=== PATIENT | female | born 1995 | race American Indian/Alaskan Native ===

== ENCOUNTER 2017-09-26 12:41 | Inpatient (IN) | payer MEDICAID ==
[2017-09-26] MEDS ORDERED: Oxytocin/Lactated Ringers 10 UNIT/1,000 ML BAG IV ONE (13:37)
[2017-09-26] MEDS ORDERED: Sodium Chloride 0.9% 10 ML Syringe FLUSH PRN (14:54)
[2017-09-26] MEDS ORDERED: Docusate Sodium 100 MG Cap PO PRN (14:54)
[2017-09-26] MEDS ORDERED: Acetaminophen 325 MG Tab PO PRN (14:54)
[2017-09-26] MEDS ORDERED: Oxytocin/Lactated Ringers 10 UNIT/1,000 ML BAG IV SCH (15:00)
--- NOTE | 2017-09-26 16:52 | PCM.LDHP ---
<Janak Lainez - Last Filed: 09/26/17 19:42> L&D History of Present Illness - General Date of Service: 09/26/17 Admit Problem/Dx: Patient Status Order with Admit Dx/Problem 09/26/17 14:54 Patient Status [ADT] Routine Admission Diagnosis/Problem Admission Diagnosis/Problem Vaginal delivery 09/26/17 16:45 Germain is a pleasant 22 year who presents to labor and delivery following a and expulsion of her placenta. Tia VINOD date according to [place] records indicate a VINOD "sometime in August" Germain tested positive for GBS on 09/22/17 at [facility] in [place]. She reports that at approximately 3am this morning she began to have contractions which she though were Reji Haas contractions. She reports that after taking a bath these contractions seemed to francois but reports she was woken up again at 6am with the contractions. She reports she was having these contractions every 5 minutes with them lasting approximately 30 seconds or less. She locates the pain in her lower back, rates it as a 10/10 when they occur, and denies any radiation. EMS reports the baby was delivered inside the ambulance and approximately an hour later the placenta passed. This patient reports these contractions have abated with the of baby and the passing of the placenta but she does indicate that she is still feeling cramps in her lower abdomen. 09/26/17 17:08 09/26/17 19:42 Records from [place] revealed LMP VINOD 11/16/17. USG at [facility] was 26 weeks and due date "sometime in August". On 08/25/17 USG revealed 34 weeks (by LMP 28w1d ) [facility] records 06/26/17 26w6d VINOD 09/26/17. Normal anatomy. GC/CT neg 08/25/17 HIV AG-AB, -1 AB, -2 AB, -1 AG all nonreactive. Urine culture mixed viv. Rubella immune Syphilis negative UDS negative O Negative Antibody screen Negative HBsAb <8.5 (5.5) H/H 11.2/32.8 on 08/25/17 Plt [id number] Source of Information: Patient History Limitations: Reports: No Limitations - History of Present Illness Location, : Reports: Lower back Quality: Reports: Ache, Sharp Severity: Severe Pain Score: 10 Improves with: Reports: None Worsens with: Reports: None - Related Data Allergies/Adverse Reactions: Allergies Allergy/AdvReac Type Severity Reaction Status Date / Time No Known Allergies Allergy Verified 09/26/17 14:54 Past Medical History - Past Health History Medical/Surgical History: Denies Medical/Surgical History Social & Family History - Family History Family Medical History: Noncontributory HEENT: Reports: None Cardiac: Reports: None Respiratory: Reports: None GI: Reports: None : Reports: None OBGYN: Reports: None Musculoskeletal: Reports: None Neurological: Reports: None Psychiatric: Reports: None Endocrine/Metabolic: Reports: None Hematologic: Reports: None Immunologic: Reports: None Dermatologic: Reports: None Oncologic: Reports: None, Breast Other Oncologic Family History: Patient reports her maternal grandmother had breast cancer and also reports her brother was diagnosed with bone cancer. - Tobacco Use Smoking Status *Q: Never Smoker Second Hand Smoke Exposure: No - Caffeine Use Caffeine Use: Reports: None - Recreational Drug Use Recreational Drug Use: No H&P Review of Systems - Review of Systems: Review Of Systems: See Below General: Reports: Fatigue HEENT: Reports: No Symptoms Pulmonary: Reports: No Symptoms Cardiovascular: Reports: No Symptoms Gastrointestinal: Reports: No Symptoms Genitourinary: Reports: No Symptoms Musculoskeletal: Reports: No Symptoms Psychiatric: Reports: No Symptoms Neurological: Reports: No Symptoms L&D Exam - Exam Exam: See Below - Vital Signs Vital Signs: Last Vital Signs Temp 97.2 F 09/26/17 15:00 Pulse 84 09/26/17 15:00 Resp 16 09/26/17 15:00 BP 125/70 09/26/17 15:00 Pulse Ox 100 09/26/17 15:00 Weight: 158 lb - Exam General: Alert, Oriented HEENT: Conjunctiva Clear, EOMI, Hearing Intact, Mucosa Moist & [place], Posterior Pharynx Clear, Pupils Equal, Pupils Reactive Neck: Supple, Trachea Midline Lungs: Clear to Auscultation, Normal Respiratory Effort Cardiovascular: Regular Rate, Regular Rhythm GI/Abdominal Exam: Normal Bowel Sounds, Soft, Non-Tender, No Organomegaly, No Distention, No Mass, Other (Patient examined upon arrival after delivery in ambulance. small <1 cm 1st degree laceration midline not bleeding not sutured) Back Exam: Normal Inspection, Full Range of Motion Extremities: Normal Inspection, Normal Range of Motion, Non-Tender, Pedal Edema Skin: Warm, Dry, Intact Neurological: Reflexes Equal Bilateral DTR: 2+: Bicep (L), Bicep (R), Tricep (L), Tricep (R), Patella (L), Patella (R) Psychiatric: Alert, Normal Affect, Normal Mood - Patient Data Lab Results Last 24 hrs: Laboratory Results - last 24 hr 09/26/17 09/26/17 09/26/17 Range/Units 14:55 15:35 15:35 WBC Cancelled 18.68 H Corrected WBC Cancelled RBC Cancelled 3.54 L Hgb Cancelled 9.8 L Hct Cancelled 29.0 L MCV Cancelled 81.9 MCH Cancelled 27.7 MCHC Cancelled 33.8 RDW Std Deviation Cancelled 43.3 Plt Count Cancelled 318 MPV Cancelled 9.9 Neut % (Auto) Cancelled 89.0 H Lymph % (Auto) Cancelled 5.3 L [place] % (Auto) Cancelled 5.3 Eos % (Auto) Cancelled 0 L Baso % (Auto) Cancelled 0.1 Neut # (Auto) Cancelled 16.64 H Lymph # (Auto) Cancelled 0.99 L [place] # (Auto) Cancelled 0.99 H Eos # (Auto) Cancelled 0.00 L Baso # (Auto) Cancelled 0.01 Manual Slide Review Cancelled Abnormal smear Blood Type O NEGATIVE Result Diagrams: 09/26/17 15:35 - Problem List (1) 40 weeks gestation of SNOMED Code(s): 79850207 ICD Code: Z3A.40 - 40 WEEKS GESTATION OF Status: Acute Current Visit: Yes Problem List Initiated/Reviewed/Updated: No Orders Last 24hrs: Active Orders 24 hr Category Date Time Status Patient Status [ADT] Routine ADT 09/26/17 14:54 Active Activity as Tolerated [RC] PER UNIT ROUTINE Care 09/26/17 14:54 Active Peripheral IV Care [RC] Q2HR Care 09/26/17 14:56 Active Vital Signs [RC] 04,12,20 Care 09/26/17 14:54 Active Regular Diet [DIET] Diet 09/26/17 Dinner Active CBC WITH AUTO DIFF [HEME] Routine Lab 09/27/17 06:00 Ordered PATIENT RETYPE [BBK] Routine Lab 09/26/17 15:35 Results RHOGAM, [RHIG WORKUP, ] [BBK] Lab 09/26/17 15:35 Results Routine Acetaminophen [Tylenol] Med 09/26/17 14:54 Active 650 mg PO Q4H PRN Docusate Sodium [Colace] Med 09/26/17 14:54 Active 100 mg PO BID PRN Ibuprofen [Motrin] Med 09/26/17 14:54 Active 600 mg PO Q4H PRN Oxytocin/Lactated Ringers [Pitocin in LR 10 Units/1,000 Med 09/26/17 15:00 Active ML] 10 unit in 1,000 ml IV TITRATE Sodium Chloride 0.9% [Saline Flush] Med 09/26/17 14:54 Active 10 ml FLUSH ASDIRECTED PRN Assess Lochia [WOMSER] Per Unit Routine Ot 09/26/17 14:54 Ordered Assess Uterine Involution [WOMSER] Per Unit Routine Oth 09/26/17 14:54 Ordered Breast Pump [WOMSER] Per Unit Routine Ot 09/26/17 14:54 Ordered Heat Therapy [OM.PC] PRN Oth 09/26/17 15:00 Ordered Heat Therapy [OM.PC] PRN Ot 09/27/17 15:00 Ordered Perineal Care [OM.PC] Per Unit Routine Ot 09/26/17 14:54 Ordered Peripheral IV Insertion Adult [OM.PC] Routine Ot 09/26/17 14:54 Ordered Sitz Bath [OM.PC] Per Unit Routine Ot 09/26/17 14:54 Ordered Resuscitation Status Routine Resus Stat 09/26/17 14:54 Ordered Medication Orders Acetaminophen (Tylenol) 650 mg PO Q4H PRN PRN Reason: mild pain or fever Docusate Sodium (Colace) 100 mg PO BID PRN PRN Reason: Constipation Oxytocin/Lactated Ringer's (Pitocin In Lr 10 Units/1,000 Ml) 10 unit in 1,000 mls @ 100 mls/hr IV TITRATE SULAIMAN Ibuprofen (Motrin) 600 mg PO Q4H PRN PRN Reason: Mild pain or fever Sodium Chloride (Saline Flush) 10 ml FLUSH ASDIRECTED PRN PRN Reason: Keep Vein Open Assessment/Plan Comment:: Delivery occurred in ambulance and placenta delivered in ambulance as well. <Geoffrey Van - Last Filed: 09/26/17 19:59> L&D History of Present Illness - General Admit Problem/Dx: Patient Status Order with Admit Dx/Problem 09/26/17 14:54 Patient Status [ADT] Routine Admission Diagnosis/Problem Admission Diagnosis/Problem Vaginal delivery Source of Information: Patient History Limitations: Reports: No Limitations - History of Present Illness Improves with: Reports: None Worsens with: Reports: None Associated Symptoms: Reports: N L&D Exam - Vital Signs Vital Signs: Last Vital Signs Temp 97.2 F 09/26/17 15:00 Pulse 84 09/26/17 15:00 Resp 16 09/26/17 15:00 BP 125/70 09/26/17 15:00 Pulse Ox 100 09/26/17 15:00 - Patient Data Lab Results Last 24 hrs: Laboratory Results - last 24 hr 09/26/17 09/26/17 09/26/17 Range/Units 14:55 15:35 15:35 WBC Cancelled 18.68 H Corrected WBC Cancelled RBC Cancelled 3.54 L Hgb Cancelled 9.8 L Hct Cancelled 29.0 L MCV Cancelled 81.9 MCH Cancelled 27.7 MCHC Cancelled 33.8 RDW Std Deviation Cancelled 43.3 Plt Count Cancelled 318 MPV Cancelled 9.9 Neut % (Auto) Cancelled 89.0 H Lymph % (Auto) Cancelled 5.3 L [place] % (Auto) Cancelled 5.3 Eos % (Auto) Cancelled 0 L Baso % (Auto) Cancelled 0.1 Neut # (Auto) Cancelled 16.64 H Lymph # (Auto) Cancelled 0.99 L [place] # (Auto) Cancelled 0.99 H Eos # (Auto) Cancelled 0.00 L Baso # (Auto) Cancelled 0.01 Manual Slide Review Cancelled Abnormal smear Blood Type O NEGATIVE Gel Antibody Screen Positive Screen 0 ros/5 flds - neg RhIG Candidate? Yes Rhogam Indicated Yes, baby rh pos H Result Diagrams: 09/26/17 15:35 - Problem List (1) 40 weeks gestation of SNOMED Code(s): 80978456 ICD Code: Z3A.40 - 40 WEEKS GESTATION OF Status: Acute Current Visit: Yes Problem List Initiated/Reviewed/Updated: No Orders Last 24hrs: Active Orders 24 hr Category Date Time Status Patient Status [ADT] Routine ADT 09/26/17 14:54 Active Activity as Tolerated [RC] PER UNIT ROUTINE Care 09/26/17 14:54 Active Peripheral IV Care [RC] Q2HR Care 09/26/17 14:56 Active Vital Signs [RC] 04,12,20 Care 09/26/17 14:54 Active Regular Diet [DIET] Diet 09/26/17 Dinner Active ANTIBODY IDENTIFICATION [BBK] Routine Lab 09/26/17 15:35 Results CBC WITH AUTO DIFF [HEME] Routine Lab 09/27/17 06:00 Ordered SCREEN [BBK] Routine Lab 09/26/17 15:35 Results PATIENT RETYPE [BBK] Routine Lab 09/26/17 15:35 Results RH IMMUNE GLOBULIN [BBK] Routine Lab 09/26/17 15:35 Results RHOGAM, [RHIG WORKUP, ] [BBK] Lab 09/26/17 15:35 Results Routine Acetaminophen [Tylenol] Med 09/26/17 14:54 Active 650 mg PO Q4H PRN Docusate Sodium [Colace] Med 09/26/17 14:54 Active 100 mg PO BID PRN Ibuprofen [Motrin] Med 09/26/17 14:54 Active 600 mg PO Q4H PRN Oxytocin/Lactated Ringers [Pitocin in LR 10 Units/1,000 Med 09/26/17 15:00 Active ML] 10 unit in 1,000 ml IV TITRATE Sodium Chloride 0.9% [Saline Flush] Med 09/26/17 14:54 Active 10 ml FLUSH ASDIRECTED PRN Assess Lochia [WOMSER] Per Unit Routine Oth 09/26/17 14:54 Ordered Assess Uterine Involution [WOMSER] Per Unit Routine Oth 09/26/17 14:54 Ordered Breast Pump [WOMSER] Per Unit Routine Oth 09/26/17 14:54 Ordered Heat Therapy [OM.PC] PRN Oth 09/26/17 15:00 Ordered Heat Therapy [OM.PC] PRN Oth 09/27/17 15:00 Ordered Perineal Care [OM.PC] Per Unit Routine Oth 09/26/17 14:54 Ordered Peripheral IV Insertion Adult [OM.PC] Routine Oth 09/26/17 14:54 Ordered Sitz Bath [OM.PC] Per Unit Routine Oth 09/26/17 14:54 Ordered Resuscitation Status Routine Resus Stat 09/26/17 14:54 Ordered Medication Orders Acetaminophen (Tylenol) 650 mg PO Q4H PRN PRN Reason: mild pain or fever Docusate Sodium (Colace) 100 mg PO BID PRN PRN Reason: Constipation Oxytocin/Lactated Ringer's (Pitocin In Lr 10 Units/1,000 Ml) 10 unit in 1,000 mls @ 100 mls/hr IV TITRATE SULAIMAN Last Admin: 09/26/17 14:00 Dose: 100 mls/hr Ibuprofen (Motrin) 600 mg PO Q4H PRN PRN Reason: Mild pain or fever Sodium Chloride (Saline Flush) 10 ml FLUSH ASDIRECTED PRN PRN Reason: Keep Vein Open Assessment/Plan Comment:: Patient seen, examined and discussed with student.
[2017-09-27] MEDS: Ibuprofen 600 MG Tab PO PRN ×3 (01:23→20:28)
--- NOTE | 2017-09-27 08:33 | PCM.SN ---
- Free Text/Narrative Note: note: Afebrile, chest clear no abnormal breath sounds. Heart sounds normal. Breast exam negative. Abdomen nontender uterus at U []. No heavy vaginal bleeding no leg cramping reflexes normal.
[2017-09-28] MEDS: Ibuprofen 600 MG Tab PO PRN (04:46)
--- NOTE | 2017-09-28 09:13 | PCM.DCSUM1 ---
Discharge Summary - Hospital Course Free Text/Narrative:: [facility] LIVE Admission H&P Patient Name: DAVID SINGER Date of : 89 Patient Status: Inpatient Attending Provider: Geoffrey Van Date: 09/26/17 16:44 Initialization Date: 09/26/17 16:44 <Janak Lainez - Last Filed: 09/26/17 19:42> L&D History of Present Illness - General Date of Service: 09/26/17 Admit Problem/Dx: Patient Status Order with Admit Dx/Problem 09/26/17 14:54 Patient Status [ADT] Routine Admission Diagnosis/Problem Admission Diagnosis/Problem Vaginal delivery 09/26/17 16:45 David is a pleasant 22 year who presents to labor and delivery following a and expulsion of her placenta. Tia VINOD date according to [place] records indicate a VINOD "sometime in August" David tested positive for GBS on 09/22/[address] [facility] in [place]. She reports that at approximately 3am this morning she began to have contractions which she though were [place]ji Haas contractions. She reports that after taking a bath these contractions seemed to francois but reports she was woken up again at 6am with the contractions. She reports she was having these contractions every 5 minutes with them lasting approximately 30 seconds or less. She locates the pain in her lower back, rates it as a 10/10 when they occur, and denies any radiation. EMS reports the baby was delivered inside the ambulance and approximately an hour later the placenta passed. This patient reports these contractions have abated with the of baby and the passing of the placenta but she does indicate that she is still feeling cramps in her lower abdomen. 09/26/17 17:08 09/26/17 19:42 Records from [place] revealed LMP VINOD 11/16/17. USG at [facility] was 26 weeks and due date "sometime in August". On 08/25/17 USG revealed 34 weeks (by LMP 28w1d ) [facility] records 06/26/17 26w6d VINOD 09/26/17. Normal anatomy. GC/CT neg 08/25/17 HIV AG-AB, -1 AB, -2 AB, -1 AG all nonreactive. Urine culture mixed viv. Rubella immune Syphilis negative UDS negative O Negative Antibody screen Negative HBsAb <8.5 (5.5) H/H 11.2/32.8 on 08/25/17 Plt [id number] Source of Information: Patient History Limitations: Reports: No Limitations - History of Present Illness Location, : Reports: Lower back Quality: Reports: Ache, Sharp Severity: Severe Pain Score: 10 Improves with: Reports: None Worsens with: Reports: None - Related Data Allergies/Adverse Reactions: Allergies Allergy/AdvReac Type Severity Reaction Status Date / Time No Known Allergies Allergy Verified 09/26/17 14:54 Past Medical History - Past Health History Medical/Surgical History: Denies Medical/Surgical History Social & Family History - Family History Family Medical History: Noncontributory HEENT: Reports: None Cardiac: Reports: None Respiratory: Reports: None GI: Reports: None : Reports: None OBGYN: Reports: None Musculoskeletal: Reports: None Neurological: Reports: None Psychiatric: Reports: None Endocrine/Metabolic: Reports: None Hematologic: Reports: None Immunologic: Reports: None Dermatologic: Reports: None Oncologic: Reports: None, Breast Other Oncologic Family History: Patient reports her maternal grandmother had breast cancer and also reports her brother was diagnosed with bone cancer. - Tobacco Use Smoking Status *Q: Never Smoker Second Hand Smoke Exposure: No - Caffeine Use Caffeine Use: Reports: None - Recreational Drug Use Recreational Drug Use: No H&P Review of Systems - Review of Systems: Review Of Systems: See Below General: Reports: Fatigue HEENT: Reports: No Symptoms Pulmonary: Reports: No Symptoms Cardiovascular: Reports: No Symptoms Gastrointestinal: Reports: No Symptoms Genitourinary: Reports: No Symptoms Musculoskeletal: Reports: No Symptoms Psychiatric: Reports: No Symptoms Neurological: Reports: No Symptoms L&D Exam - Exam Exam: See Below - Vital Signs Vital Signs: Last Vital Signs Temp 97.2 F 09/26/17 15:00 Pulse 84 09/26/17 15:00 Resp 16 09/26/17 15:00 BP 125/70 09/26/17 15:00 Pulse Ox 100 09/26/17 15:00 Weight: 158 lb - Exam General: Alert, Oriented HEENT: Conjunctiva Clear, EOMI, Hearing Intact, Mucosa Moist & [place], Posterior Pharynx Clear, Pupils Equal, Pupils Reactive Neck: Supple, Trachea Midline Lungs: Clear to Auscultation, Normal Respiratory Effort Cardiovascular: Regular Rate, Regular Rhythm GI/Abdominal Exam: Normal Bowel Sounds, Soft, Non-Tender, No Organomegaly, No Distention, No Mass, Other (Patient examined upon arrival after delivery in ambulance. small <1 cm 1st degree laceration midline not bleeding not sutured) Back Exam: Normal Inspection, Full Range of Motion Extremities: Normal Inspection, Normal Range of Motion, Non-Tender, Pedal Edema Skin: Warm, Dry, Intact Neurological: Reflexes Equal Bilateral DTR: 2+: Bicep (L), Bicep (R), Tricep (L), Tricep (R), Patella (L), Patella (R) Psychiatric: Alert, Normal Affect, Normal Mood - Patient Data Lab Results Last 24 hrs: Laboratory Results - last 24 hr 09/26/17 09/26/17 09/26/17 Range/Units 14:55 15:35 15:35 WBC Cancelled 18.68 H Corrected WBC Cancelled RBC Cancelled 3.54 L Hgb Cancelled 9.8 L Hct Cancelled 29.0 L MCV Cancelled 81.9 MCH Cancelled 27.7 MCHC Cancelled 33.8 RDW Std Deviation Cancelled 43.3 Plt Count Cancelled 318 MPV Cancelled 9.9 Neut % (Auto) Cancelled 89.0 H Lymph % (Auto) Cancelled 5.3 L [place] % (Auto) Cancelled 5.3 Eos % (Auto) Cancelled 0 L Baso % (Auto) Cancelled 0.1 Neut # (Auto) Cancelled 16.64 H Lymph # (Auto) Cancelled 0.99 L [place] # (Auto) Cancelled 0.99 H Eos # (Auto) Cancelled 0.00 L Baso # (Auto) Cancelled 0.01 Manual Slide Review Cancelled Abnormal smear Blood Type O NEGATIVE Result Diagrams: 09/26/17 15:35 - Problem List (1) 40 weeks gestation of SNOMED Code(s): 47679606 ICD Code: Z3A.40 - 40 WEEKS GESTATION OF Status: Acute Current Visit: Yes Problem List Initiated/Reviewed/Updated: No Orders Last 24hrs: Active Orders 24 hr Category Date Time Status Patient Status [ADT] Routine ADT 09/26/17 14:54 Active Activity as Tolerated [RC] PER UNIT ROUTINE Care 09/26/17 14:54 Active Peripheral IV Care [RC] Q2HR Care 09/26/17 14:56 Active Vital Signs [RC] 04,12,20 Care 09/26/17 14:54 Active Regular Diet [DIET] Diet 09/26/17 Dinner Active CBC WITH AUTO DIFF [HEME] Routine Lab 09/27/17 06:00 Ordered PATIENT RETYPE [BBK] Routine Lab 09/26/17 15:35 Results RHOGAM, [RHIG WORKUP, ] [BBK] Lab 09/26/17 15:35 Results Routine Acetaminophen [Tylenol] Med 09/26/17 14:54 Active 650 mg PO Q4H PRN Docusate Sodium [Colace] Med 09/26/17 14:54 Active 100 mg PO BID PRN Ibuprofen [Motrin] Med 09/26/17 14:54 Active 600 mg PO Q4H PRN Oxytocin/Lactated Ringers [Pitocin in LR 10 Units/1,000 Med 09/26/17 15:00 Active ML] 10 unit in 1,000 ml IV TITRATE Sodium Chloride 0.9% [Saline Flush] Med 09/26/17 14:54 Active 10 ml FLUSH ASDIRECTED PRN Assess Lochia [WOMSER] Per Unit Routine Oth 09/26/17 14:54 Ordered Assess Uterine Involution [WOMSER] Per Unit Routine Oth 09/26/17 14:54 Ordered Breast Pump [WOMSER] Per Unit Routine Oth 09/26/17 14:54 Ordered Heat Therapy [OM.PC] PRN Oth 09/26/17 15:00 Ordered Heat Therapy [OM.PC] PRN Oth 09/27/17 15:00 Ordered Perineal Care [OM.PC] Per Unit Routine Ot 09/26/17 14:54 Ordered Peripheral IV Insertion Adult [OM.PC] Routine Oth 09/26/17 14:54 Ordered Sitz Bath [OM.PC] Per Unit Routine Oth 09/26/17 14:54 Ordered Resuscitation Status Routine Resus Stat 09/26/17 14:54 Ordered Medication Orders Acetaminophen (Tylenol) 650 mg PO Q4H PRN PRN Reason: mild pain or fever Docusate Sodium (Colace) 100 mg PO BID PRN PRN Reason: Constipation Oxytocin/Lactated Ringer's (Pitocin In Lr 10 Units/1,000 Ml) 10 unit in 1,000 mls @ 100 mls/hr IV TITRATE SULAIMAN Ibuprofen (Motrin) 600 mg PO Q4H PRN PRN Reason: Mild pain or fever Sodium Chloride (Saline Flush) 10 ml FLUSH ASDIRECTED PRN PRN Reason: Keep Vein Open Assessment/Plan Comment:: Delivery occurred in ambulance and placenta delivered in ambulance as well. <Geoffrey Van - Last Filed: 09/26/17 19:59> L&D History of Present Illness - General Admit Problem/Dx: Patient Status Order with Admit Dx/Problem 09/26/17 14:54 Patient Status [ADT] Routine Admission Diagnosis/Problem Admission Diagnosis/Problem Vaginal delivery Source of Information: Patient History Limitations: Reports: No Limitations - History of Present Illness Improves with: Reports: None Worsens with: Reports: None Associated Symptoms: Reports: N L&D Exam - Vital Signs Vital Signs: Last Vital Signs Temp 97.2 F 09/26/17 15:00 Pulse 84 09/26/17 15:00 Resp 16 09/26/17 15:00 BP 125/70 09/26/17 15:00 Pulse Ox 100 09/26/17 15:00 - Patient Data Lab Results Last 24 hrs: Laboratory Results - last 24 hr 09/26/17 09/26/17 09/26/17 Range/Units 14:55 15:35 15:35 WBC Cancelled 18.68 H Corrected WBC Cancelled RBC Cancelled 3.54 L Hgb Cancelled 9.8 L Hct Cancelled 29.0 L MCV Cancelled 81.9 MCH Cancelled 27.7 MCHC Cancelled 33.8 RDW Std Deviation Cancelled 43.3 Plt Count Cancelled 318 MPV Cancelled 9.9 Neut % (Auto) Cancelled 89.0 H Lymph % (Auto) Cancelled 5.3 L [place] % (Auto) Cancelled 5.3 Eos % (Auto) Cancelled 0 L Baso % (Auto) Cancelled 0.1 Neut # (Auto) Cancelled 16.64 H Lymph # (Auto) Cancelled 0.99 L [place] # (Auto) Cancelled 0.99 H Eos # (Auto) Cancelled 0.00 L Baso # (Auto) Cancelled 0.01 Manual Slide Review Cancelled Abnormal smear Blood Type O NEGATIVE Gel Antibody Screen Positive Screen 0 ros/5 flds - neg RhIG Candidate? Yes Rhogam Indicated Yes, baby rh pos H Result Diagrams: 09/26/17 15:35 - Problem List (1) 40 weeks gestation of SNOMED Code(s): 53020686 ICD Code: Z3A.40 - 40 WEEKS GESTATION OF Status: Acute Current Visit: Yes Problem List Initiated/Reviewed/Updated: No Orders Last 24hrs: Active Orders 24 hr Category Date Time Status Patient Status [ADT] Routine ADT 09/26/17 14:54 Active Activity as Tolerated [RC] PER UNIT ROUTINE Care 09/26/17 14:54 Active Peripheral IV Care [RC] Q2HR Care 09/26/17 14:56 Active Vital Signs [RC] 04,12,20 Care 09/26/17 14:54 Active Regular Diet [DIET] Diet 09/26/17 Dinner Active ANTIBODY IDENTIFICATION [BBK] Routine Lab 09/26/17 15:35 Results CBC WITH AUTO DIFF [HEME] Routine Lab 09/27/17 06:00 Ordered SCREEN [BBK] Routine Lab 09/26/17 15:35 Results PATIENT RETYPE [BBK] Routine Lab 09/26/17 15:35 Results RH IMMUNE GLOBULIN [BBK] Routine Lab 09/26/17 15:35 Results RHOGAM, [RHIG WORKUP, ] [BBK] Lab 09/26/17 15:35 Results Routine Acetaminophen [Tylenol] Med 09/26/17 14:54 Active 650 mg PO Q4H PRN Docusate Sodium [Colace] Med 09/26/17 14:54 Active 100 mg PO BID PRN Ibuprofen [Motrin] Med 09/26/17 14:54 Active 600 mg PO Q4H PRN Oxytocin/Lactated Ringers [Pitocin in LR 10 Units/1,000 Med 09/26/17 15:00 Active ML] 10 unit in 1,000 ml IV TITRATE Sodium Chloride 0.9% [Saline Flush] Med 09/26/17 14:54 Active 10 ml FLUSH ASDIRECTED PRN Assess Lochia [WOMSER] Per Unit Routine Oth 09/26/17 14:54 Ordered Assess Uterine Involution [WOMSER] Per Unit Routine Oth 09/26/17 14:54 Ordered Breast Pump [WOMSER] Per Unit Routine Oth 09/26/17 14:54 Ordered Heat Therapy [OM.PC] PRN Oth 09/26/17 15:00 Ordered Heat Therapy [OM.PC] PRN Oth 09/27/17 15:00 Ordered Perineal Care [OM.PC] Per Unit Routine Oth 09/26/17 14:54 Ordered Peripheral IV Insertion Adult [OM.PC] Routine Oth 09/26/17 14:54 Ordered Sitz Bath [OM.PC] Per Unit Routine Oth 09/26/17 14:54 Ordered Resuscitation Status Routine Resus Stat 09/26/17 14:54 Ordered Medication Orders Acetaminophen (Tylenol) 650 mg PO Q4H PRN PRN Reason: mild pain or fever Docusate Sodium (Colace) 100 mg PO BID PRN PRN Reason: Constipation Oxytocin/Lactated Ringer's (Pitocin In Lr 10 Units/1,000 Ml) 10 unit in 1,000 mls @ 100 mls/hr IV TITRATE SULAIMAN Last Admin: 09/26/17 14:00 Dose: 100 mls/hr Ibuprofen (Motrin) 600 mg PO Q4H PRN PRN Reason: Mild pain or fever Sodium Chloride (Saline Flush) 10 ml FLUSH ASDIRECTED PRN PRN Reason: Keep Vein Open Assessment/Plan Comment:: Patient seen, examined and discussed with student. HPI Initial Comments: [facility] LIVE Admission H&P Patient Name: DAVID SINGER Date of : 89 Patient Status: Inpatient Attending Provider: Geoffrey Van Date: 09/26/17 16:44 Initialization Date: 09/26/17 16:44 <Janak Lainez - Last Filed: 09/26/17 19:42> L&D History of Present Illness - General Date of Service: 09/26/17 Admit Problem/Dx: Patient Status Order with Admit Dx/Problem 09/26/17 14:54 Patient Status [ADT] Routine Admission Diagnosis/Problem Admission Diagnosis/Problem Vaginal delivery 09/26/17 16:45 David is a pleasant 22 year who presents to labor and delivery following a and expulsion of her placenta. Tia VINOD date according to [place] indicate a VINOD "sometime in August" David tested positive for GBS on 09/22/[address] [facility] in [place]. She reports that at approximately 3am this morning she began to have contractions which she though were [place] Haas contractions. She reports that after taking a bath these contractions seemed to francois but reports she was woken up again at 6am with the contractions. She reports she was having these contractions every 5 minutes with them lasting approximately 30 seconds or less. She locates the pain in her lower back, rates it as a 10/10 when they occur, and denies any radiation. EMS reports the baby was delivered inside the ambulance and approximately an hour later the placenta passed. This patient reports these contractions have abated with the of baby and the passing of the placenta but she does indicate that she is still feeling cramps in her lower abdomen. 09/26/17 17:08 09/26/17 19:42 Records from [place] revealed LMP VINOD 11/16/17. USG at [facility] was 26 weeks and due date "sometime in August". On 08/25/17 USG revealed 34 weeks (by LMP 28w1d ) [facility] records 06/26/17 26w6d VINOD 09/26/17. Normal anatomy. GC/CT neg 08/25/17 HIV AG-AB, -1 AB, -2 AB, -1 AG all nonreactive. Urine culture mixed viv. Rubella immune Syphilis negative UDS negative O Negative Antibody screen Negative HBsAb <8.5 (5.5) H/H 11.2/32.8 on 08/25/17 Plt [id number] Source of Information: Patient History Limitations: Reports: No Limitations - History of Present Illness Location, : Reports: Lower back Quality: Reports: Ache, Sharp Severity: Severe Pain Score: 10 Improves with: Reports: None Worsens with: Reports: None - Related Data Allergies/Adverse Reactions: Allergies Allergy/AdvReac Type Severity Reaction Status Date / Time No Known Allergies Allergy Verified 09/26/17 14:54 Past Medical History - Past Health History Medical/Surgical History: Denies Medical/Surgical History Social & Family History - Family History Family Medical History: Noncontributory HEENT: Reports: None Cardiac: Reports: None Respiratory: Reports: None GI: Reports: None : Reports: None OBGYN: Reports: None Musculoskeletal: Reports: None Neurological: Reports: None Psychiatric: Reports: None Endocrine/Metabolic: Reports: None Hematologic: Reports: None Immunologic: Reports: None Dermatologic: Reports: None Oncologic: Reports: None, Breast Other Oncologic Family History: Patient reports her maternal grandmother had breast cancer and also reports her brother was diagnosed with bone cancer. - Tobacco Use Smoking Status *Q: Never Smoker Second Hand Smoke Exposure: No - Caffeine Use Caffeine Use: Reports: None - Recreational Drug Use Recreational Drug Use: No H&P Review of Systems - Review of Systems: Review Of Systems: See Below General: Reports: Fatigue HEENT: Reports: No Symptoms Pulmonary: Reports: No Symptoms Cardiovascular: Reports: No Symptoms Gastrointestinal: Reports: No Symptoms Genitourinary: Reports: No Symptoms Musculoskeletal: Reports: No Symptoms Psychiatric: Reports: No Symptoms Neurological: Reports: No Symptoms L&D Exam - Exam Exam: See Below - Vital Signs Vital Signs: Last Vital Signs Temp 97.2 F 09/26/17 15:00 Pulse 84 09/26/17 15:00 Resp 16 09/26/17 15:00 BP 125/70 09/26/17 15:00 Pulse Ox 100 09/26/17 15:00 Weight: 158 lb - Exam General: Alert, Oriented HEENT: Conjunctiva Clear, EOMI, Hearing Intact, Mucosa Moist & [place], Posterior Pharynx Clear, Pupils Equal, Pupils Reactive Neck: Supple, Trachea Midline Lungs: Clear to Auscultation, Normal Respiratory Effort Cardiovascular: Regular Rate, Regular Rhythm GI/Abdominal Exam: Normal Bowel Sounds, Soft, Non-Tender, No Organomegaly, No Distention, No Mass, Other (Patient examined upon arrival after delivery in ambulance. small <1 cm 1st degree laceration midline not bleeding not sutured) Back Exam: Normal Inspection, Full Range of Motion Extremities: Normal Inspection, Normal Range of Motion, Non-Tender, Pedal Edema Skin: Warm, Dry, Intact Neurological: Reflexes Equal Bilateral DTR: 2+: Bicep (L), Bicep (R), Tricep (L), Tricep (R), Patella (L), Patella (R) Psychiatric: Alert, Normal Affect, Normal Mood - Patient Data Lab Results Last 24 hrs: Laboratory Results - last 24 hr 09/26/17 09/26/17 09/26/17 Range/Units 14:55 15:35 15:35 WBC Cancelled 18.68 H Corrected WBC Cancelled RBC Cancelled 3.54 L Hgb Cancelled 9.8 L Hct Cancelled 29.0 L MCV Cancelled 81.9 MCH Cancelled 27.7 MCHC Cancelled 33.8 RDW Std Deviation Cancelled 43.3 Plt Count Cancelled 318 MPV Cancelled 9.9 Neut % (Auto) Cancelled 89.0 H Lymph % (Auto) Cancelled 5.3 L [place] % (Auto) Cancelled 5.3 Eos % (Auto) Cancelled 0 L Baso % (Auto) Cancelled 0.1 Neut # (Auto) Cancelled 16.64 H Lymph # (Auto) Cancelled 0.99 L [place] # (Auto) Cancelled 0.99 H Eos # (Auto) Cancelled 0.00 L Baso # (Auto) Cancelled 0.01 Manual Slide Review Cancelled Abnormal smear Blood Type O NEGATIVE Result Diagrams: 09/26/17 15:35 - Problem List (1) 40 weeks gestation of SNOMED Code(s): 69502645 ICD Code: Z3A.40 - 40 WEEKS GESTATION OF Status: Acute Current Visit: Yes Problem List Initiated/Reviewed/Updated: No Orders Last 24hrs: Active Orders 24 hr Category Date Time Status Patient Status [ADT] Routine ADT 09/26/17 14:54 Active Activity as Tolerated [RC] PER UNIT ROUTINE Care 09/26/17 14:54 Active Peripheral IV Care [RC] Q2HR Care 09/26/17 14:56 Active Vital Signs [RC] 04,12,20 Care 09/26/17 14:54 Active Regular Diet [DIET] Diet 09/26/17 Dinner Active CBC WITH AUTO DIFF [HEME] Routine Lab 09/27/17 06:00 Ordered PATIENT RETYPE [BBK] Routine Lab 09/26/17 15:35 Results RHOGAM, [RHIG WORKUP, ] [BBK] Lab 09/26/17 15:35 Results Routine Acetaminophen [Tylenol] Med 09/26/17 14:54 Active 650 mg PO Q4H PRN Docusate Sodium [Colace] Med 09/26/17 14:54 Active 100 mg PO BID PRN Ibuprofen [Motrin] Med 09/26/17 14:54 Active 600 mg PO Q4H PRN Oxytocin/Lactated Ringers [Pitocin in LR 10 Units/1,000 Med 09/26/17 15:00 Active ML] 10 unit in 1,000 ml IV TITRATE Sodium Chloride 0.9% [Saline Flush] Med 09/26/17 14:54 Active 10 ml FLUSH ASDIRECTED PRN Assess Lochia [WOMSER] Per Unit Routine Ot 09/26/17 14:54 Ordered Assess Uterine Involution [WOMSER] Per Unit Routine Ot 09/26/17 14:54 Ordered Breast Pump [WOMSER] Per Unit Routine Ot 09/26/17 14:54 Ordered Heat Therapy [OM.PC] PRN Ot 09/26/17 15:00 Ordered Heat Therapy [OM.PC] PRN Ot 09/27/17 15:00 Ordered Perineal Care [OM.PC] Per Unit Routine Ot 09/26/17 14:54 Ordered Peripheral IV Insertion Adult [OM.PC] Routine Ot 09/26/17 14:54 Ordered Sitz Bath [OM.PC] Per Unit Routine Ot 09/26/17 14:54 Ordered Resuscitation Status Routine Resus Stat 09/26/17 14:54 Ordered Medication Orders Acetaminophen (Tylenol) 650 mg PO Q4H PRN PRN Reason: mild pain or fever Docusate Sodium (Colace) 100 mg PO BID PRN PRN Reason: Constipation Oxytocin/Lactated Ringer's (Pitocin In Lr 10 Units/1,000 Ml) 10 unit in 1,000 mls @ 100 mls/hr IV TITRATE SULAIMAN Ibuprofen (Motrin) 600 mg PO Q4H PRN PRN Reason: Mild pain or fever Sodium Chloride (Saline Flush) 10 ml FLUSH ASDIRECTED PRN PRN Reason: Keep Vein Open Assessment/Plan Comment:: Delivery occurred in ambulance and placenta delivered in ambulance as well. <Geoffrey Van - Last Filed: 09/26/17 19:59> L&D History of Present Illness - General Admit Problem/Dx: Patient Status Order with Admit Dx/Problem 09/26/17 14:54 Patient Status [ADT] Routine Admission Diagnosis/Problem Admission Diagnosis/Problem Vaginal delivery Source of Information: Patient History Limitations: Reports: No Limitations - History of Present Illness Improves with: Reports: None Worsens with: Reports: None Associated Symptoms: Reports: N L&D Exam - Vital Signs Vital Signs: Last Vital Signs Temp 97.2 F 09/26/17 15:00 Pulse 84 09/26/17 15:00 Resp 16 09/26/17 15:00 BP 125/70 09/26/17 15:00 Pulse Ox 100 09/26/17 15:00 - Patient Data Lab Results Last 24 hrs: Laboratory Results - last 24 hr 09/26/17 09/26/17 09/26/17 Range/Units 14:55 15:35 15:35 WBC Cancelled 18.68 H Corrected WBC Cancelled RBC Cancelled 3.54 L Hgb Cancelled 9.8 L Hct Cancelled 29.0 L MCV Cancelled 81.9 MCH Cancelled 27.7 MCHC Cancelled 33.8 RDW Std Deviation Cancelled 43.3 Plt Count Cancelled 318 MPV Cancelled 9.9 Neut % (Auto) Cancelled 89.0 H Lymph % (Auto) Cancelled 5.3 L [place] % (Auto) Cancelled 5.3 Eos % (Auto) Cancelled 0 L Baso % (Auto) Cancelled 0.1 Neut # (Auto) Cancelled 16.64 H Lymph # (Auto) Cancelled 0.99 L [place] # (Auto) Cancelled 0.99 H Eos # (Auto) Cancelled 0.00 L Baso # (Auto) Cancelled 0.01 Manual Slide Review Cancelled Abnormal smear Blood Type O NEGATIVE Gel Antibody Screen Positive Screen 0 ros/5 flds - neg RhIG Candidate? Yes Rhogam Indicated Yes, baby rh pos H Result Diagrams: 09/26/17 15:35 - Problem List (1) 40 weeks gestation of SNOMED Code(s): 28551831 ICD Code: Z3A.40 - 40 WEEKS GESTATION OF Status: Acute Current Visit: Yes Problem List Initiated/Reviewed/Updated: No Orders Last 24hrs: Active Orders 24 hr Category Date Time Status Patient Status [ADT] Routine ADT 09/26/17 14:54 Active Activity as Tolerated [RC] PER UNIT ROUTINE Care 09/26/17 14:54 Active Peripheral IV Care [RC] Q2HR Care 09/26/17 14:56 Active Vital Signs [RC] 04,12,20 Care 09/26/17 14:54 Active Regular Diet [DIET] Diet 09/26/17 Dinner Active ANTIBODY IDENTIFICATION [BBK] Routine Lab 09/26/17 15:35 Results CBC WITH AUTO DIFF [HEME] Routine Lab 09/27/17 06:00 Ordered SCREEN [BBK] Routine Lab 09/26/17 15:35 Results PATIENT RETYPE [BBK] Routine Lab 09/26/17 15:35 Results RH IMMUNE GLOBULIN [BBK] Routine Lab 09/26/17 15:35 Results RHOGAM, [RHIG WORKUP, ] [BBK] Lab 09/26/17 15:35 Results Routine Acetaminophen [Tylenol] Med 09/26/17 14:54 Active 650 mg PO Q4H PRN Docusate Sodium [Colace] Med 09/26/17 14:54 Active 100 mg PO BID PRN Ibuprofen [Motrin] Med 09/26/17 14:54 Active 600 mg PO Q4H PRN Oxytocin/Lactated Ringers [Pitocin in LR 10 Units/1,000 Med 09/26/17 15:00 Active ML] 10 unit in 1,000 ml IV TITRATE Sodium Chloride 0.9% [Saline Flush] Med 09/26/17 14:54 Active 10 ml FLUSH ASDIRECTED PRN Assess Lochia [WOMSER] Per Unit Routine Oth 09/26/17 14:54 Ordered Assess Uterine Involution [WOMSER] Per Unit Routine Oth 09/26/17 14:54 Ordered Breast Pump [WOMSER] Per Unit Routine Oth 09/26/17 14:54 Ordered Heat Therapy [OM.PC] PRN Oth 09/26/17 15:00 Ordered Heat Therapy [OM.PC] PRN Oth 09/27/17 15:00 Ordered Perineal Care [OM.PC] Per Unit Routine Oth 09/26/17 14:54 Ordered Peripheral IV Insertion Adult [OM.PC] Routine Oth 09/26/17 14:54 Ordered Sitz Bath [OM.PC] Per Unit Routine Oth 09/26/17 14:54 Ordered Resuscitation Status Routine Resus Stat 09/26/17 14:54 Ordered Medication Orders Acetaminophen (Tylenol) 650 mg PO Q4H PRN PRN Reason: mild pain or fever Docusate Sodium (Colace) 100 mg PO BID PRN PRN Reason: Constipation Oxytocin/Lactated Ringer's (Pitocin In Lr 10 Units/1,000 Ml) 10 unit in 1,000 mls @ 100 mls/hr IV TITRATE SULAIMAN Last Admin: 09/26/17 14:00 Dose: 100 mls/hr Ibuprofen (Motrin) 600 mg PO Q4H PRN PRN Reason: Mild pain or fever Sodium Chloride (Saline Flush) 10 ml FLUSH ASDIRECTED PRN PRN Reason: Keep Vein Open Assessment/Plan Comment:: Patient seen, examined and discussed with student. Brief History: [facility] LIVE . Admission H&P . Patient Name: [facility]SI[facility] Record Number: [id number]. Date of : [birth year]Patient Status: Inpatient. Attending Provider: Geoffrey Van Number: [id number]. Date: 09/26/17 16:44Initialization Date: 16:44. <Janak Lainez - Last Filed: 09/26/17 19:42>. L&D History of Present Illness. - General. Date of Service: 09/26/17. Admit Problem/Dx: Patient Status Order with Admit Dx/Problem. 09/26/17 14:54. Patient Status [ ADT] Routine. Admission Diagnosis/Problem. Admission Diagnosis/Problem Vaginal delivery. 09/26/17 16:45. David is a pleasant 22 year who presents to labor and delivery following a and expulsion of her placenta. Tia VINOD date according to [place] records indicate a VINOD "sometime in August" David tested positive for GBS on 09/22/[address] [facility] in [place]. She reports that at approximately 3am this morning she began to have contractions which she though were [place] contractions. She reports that after taking a bath these contractions seemed to francois but reports she was woken up again at 6am with the contractions. She reports she was having these contractions every 5 minutes with them lasting approximately 30 seconds or less. She locates the pain in her lower back, rates it as a 10/10 when they occur, and denies any radiation. EMS reports the baby was delivered inside the ambulance and approximately an hour later the placenta passed. This patient reports these contractions have abated with the of baby and the passing of the placenta but she does indicate that she is still feeling cramps in her lower abdomen. 09/26/17 17:08. 09/26/17 19:42. Records from [facility] revealed LMP VINOD 11/16/17. USG at [facility] was 26 weeks and due date "sometime in August ". On 08/25/17 USG revealed 34 weeks (by LMP 28w1d). [facility] records 06/26/17 26w6d VINOD 09/26/17. Normal anatomy. GC/CT neg 08/25/17. HIV AG-AB, -1 AB, -2 AB , -1 AG all nonreactive. Urine culture mixed viv. Rubella immune. Syphilis negative. UDS negative. O Negative. Antibody screen Negative. HBsAb <8.5 ( 5.5). H/H 11.2/32.8 on 08/25/17. Plt [id number]. Source of Information: Patient. History Limitations: Reports: No Limitations. - History of Present Illness. Location, : Reports: Lower back. Quality: Reports: Ache, Sharp. Severity: Severe. Pain Score: 10. Improves with: Reports: None. Worsens with : Reports: None. - Related Data. Allergies/Adverse Reactions: Allergies. Allergy/AdvReacTypeSeverityReactionStatusDate / Time. No Known [id number]/27/18 14:54. Past Medical History. - Past Health History. Medical/Surgical History: Denies Medical/Surgical History. Social & Family History. - Family History. Family Medical History: Noncontributory. HEENT: Reports: None. Cardiac: Reports: None. Respiratory: Reports: None. GI : Reports: None. : Reports: None. OBGYN: Reports: None. Musculoskeletal: Reports: None. Neurological: Reports: None. Psychiatric: Reports: None. Endocrine/Metabolic: Reports: None. Hematologic: Reports: None. Immunologic: Reports: None. Dermatologic: Reports: None. Oncologic: Reports: None, Breast. Other Oncologic Family History: Patient reports her maternal grandmother had breast cancer and also reports her brother was diagnosed with bone cancer. - Tobacco Use. Smoking Status *Q: Never Smoker. Second Hand Smoke Exposure: No. - Caffeine Use. Caffeine Use: Reports: None. - Recreational Drug Use. Recreational Drug Use: No. H&P Review of Systems. - Review of Systems: Review Of Systems: See Below. General: Reports: Fatigue. HEENT: Reports: No Symptoms. Pulmonary: Reports: No Symptoms. Cardiovascular: Reports: No Symptoms. Gastrointestinal: Reports: No Symptoms. Genitourinary: Reports: No Symptoms. Musculoskeletal: Reports: No Symptoms. Psychiatric: Reports: No Symptoms. Neurological: Reports: No Symptoms. L&D Exam. - Exam. Exam: See Below. - Vital Signs. Vital Signs: Last Vital Signs. Temp 97.2 F 09/26/17 15:00. Pulse 84 09/26/17 15:00. Resp 16 09/26/17 15:00. BP 125/70 15:00. Pulse Ox 100 09/26/17 15:00. Weight: 158 lb. - Exam. General: Alert, Oriented. HEENT: Conjunctiva Clear, EOMI, Hearing Intact, Mucosa Moist & [place], Posterior Pharynx Clear, Pupils Equal, Pupils Reactive. Neck: Supple, Trachea Midline. Lungs: Clear to Auscultation, Normal Respiratory Effort. Cardiovascular: Regular Rate, Regular Rhythm. GI/Abdominal Exam: Normal Bowel Sounds, Soft, Non-Tender, No Organomegaly, No Distention, No Mass, Other ( Patient examined upon arrival after delivery in ambulance. small <1 cm 1st degree laceration midline not bleeding not sutured). Back Exam: Normal Inspection, Full Range of Motion. Extremities: Normal Inspection, Normal Range of Motion, Non-Tender, Pedal Edema. Skin: Warm, Dry, Intact. Neurological: Reflexes Equal Bilateral. DTR: 2+: Bicep (L), Bicep (R), Tricep (L), Tricep (R) , Patella (L), Patella (R). Psychiatric: Alert, Normal Affect, Normal Mood. - Patient Data. Lab Results Last 24 hrs: Laboratory Results - last 24 hr. 09/26Range/Units. 14:5515:3515:35. WBC Cancelled 18.68 H. Corrected WBC Cancelled. RBC Cancelled 3.54 L. Hgb Cancelled 9.8 L. Hct Cancelled 29.0 L. MCV Cancelled 81.9. MCH Cancelled 27.7. MCHC Cancelled 33.8. RDW Std Deviation Cancelled 43.3. Plt Count Cancelled 318. MPV Cancelled 9.9. Neut % (Auto) Cancelled 89.0 H. Lymph % (Auto) Cancelled 5.3 L. [place] % (Auto) Cancelled 5.3. Eos % (Auto) Cancelled 0 L. Baso % (Auto) Cancelled 0.1. Neut # (Auto) Cancelled 16.64 H. Lymph # (Auto) Cancelled 0.99 L. [place] # (Auto) Cancelled 0.99 H. Eos # (Auto) Cancelled 0.00 L. Baso # ( Auto) Cancelled 0.01. Manual Slide Review Cancelled Abnormal smear. Blood Type O NEGATIVE. Result Diagrams: 09/26/17 15:35. [Image 1]. - Problem List. (1) 40 weeks gestation of . SNOMED Code(s): 87628273. ICD Code : Z3A.40 - 40 WEEKS GESTATION OF Status: Acute Current Visit: Yes. Problem List Initiated/Reviewed/Updated: No. Orders Last 24hrs: Active Orders 24 hr. CategoryDate TimeStatus. Patient Status [ADT] RoutineADT 14:54Active. Activity as Tolerated [RC] PER UNIT ROUTINECare 09/26/17 14: 54Active. Peripheral IV Care [RC] [id number] 09/26/17 14:56Active. Vital Signs [ RC] 04,12,20Care 09/26/17 14:54Active. Regular Diet [DIET]Diet 09/26/17 DinnerActive. CBC WITH AUTO DIFF [HEME] RoutineLab 09/27/17 06:00Ordered. PATIENT RETYPE [BBK] RoutineLab 09/26/17 15:35Results. RHOGAM, [ RHIG WORKUP, ] [BBK]Lab 09/26/17 15:35Results. Routine. Acetaminophen [Tylenol]Med 09/26/17 14:54Active. 650 mg PO Q4H PRN. Docusate Sodium [Colace]Med 09/26/17 14:54Active. 100 mg PO BID PRN. Ibuprofen [Motrin] Med 09/26/17 14:54Active. 600 mg PO Q4H PRN. Oxytocin/Lactated Ringers [ Pitocin in LR 10 Units/1,000Med 09/26/17 15:00Active. ML]. 10 unit in 1,000 ml IV TITRATE. Sodium Chloride 0.9% [Saline Flush]Med 09/26/17 14:54Active. 10 ml FLUSH ASDIRECTED PRN. Assess Lochia [WOMSER] Per Unit RoutineOth 14:54Ordered. Assess Uterine Involution [WOMSER] Per Unit RoutineOth 14:54Ordered. Breast Pump [WOMSER] Per Unit RoutineOth 09/26/17 14: 54Ordered. Heat Therapy [OM.PC] PRNOth 09/26/17 15:00Ordered. Heat Therapy [ OM.PC] PRNOth 09/27/17 15:00Ordered. Perineal Care [OM.PC] Per Unit RoutineOth 09/26/17 14:54Ordered. Peripheral IV Insertion Adult [OM.PC] RoutineOth 14:54Ordered. Sitz Bath [OM.PC] Per Unit RoutineOth 09/26/17 14:54Ordered. Resuscitation Status RoutineResus Stat 09/26/17 14:54Ordered. Medication Orders. Acetaminophen (Tylenol) 650 mg PO Q4H PRN. PRN Reason: mild pain or fever. Docusate Sodium (Colace) 100 mg PO BID PRN. PRN Reason: Constipation. Oxytocin/Lactated Ringer's (Pitocin In Lr 10 Units/1,000 Ml) 10 unit in 1, 000 mls @ 100 mls/hr IV TITRATE SULAIMAN. Ibuprofen (Motrin) 600 mg PO Q4H PRN. PRN Reason: Mild pain or fever. Sodium Chloride (Saline Flush) 10 ml FLUSH ASDIRECTED PRN. PRN Reason: Keep Vein Open. Assessment/Plan Comment:: Delivery occurred in ambulance and placenta delivered in ambulance as well. < Geoffrey Van - Last Filed: 09/26/17 19:59>. L&D History of Present Illness. - General. Admit Problem/Dx: Patient Status Order with Admit Dx/ Problem. 09/26/17 14:54. Patient Status [ADT] Routine. Admission Diagnosis/ Problem. Admission Diagnosis/Problem Vaginal delivery. Source of Information : Patient. History Limitations: Reports: No Limitations. - History of Present Illness. Improves with: Reports: None. Worsens with: Reports: None. Associated Symptoms: Reports: N. L&D Exam. - Vital Signs. Vital Signs: Last Vital Signs. Temp 97.2 F 09/26/17 15:00. Pulse 84 09/26/17 15:00. Resp 16 09/26/17 15:00. BP 125/70 09/26/17 15:00. Pulse Ox 100 09/26/17 15:00. - Patient Data. Lab Results Last 24 hrs: Laboratory Results - last 24 hr. 09/26Range/Units. 14:5515:3515:35. WBC Cancelled 18.68 H. Corrected WBC Cancelled. RBC Cancelled 3.54 L. Hgb Cancelled 9.8 L. Hct Cancelled 29.0 L. MCV Cancelled 81.9. MCH Cancelled 27.7. MCHC Cancelled 33.8. RDW Std Deviation Cancelled 43.3. Plt Count Cancelled 318. MPV Cancelled 9.9. Neut % (Auto) Cancelled 89.0 H. Lymph % (Auto) Cancelled 5.3 L. [place] % (Auto) Cancelled 5.3. Eos % (Auto) Cancelled 0 L. Baso % (Auto) Cancelled 0.1. Neut # (Auto) Cancelled 16.64 H. Lymph # (Auto) Cancelled 0.99 L. [place] # (Auto) Cancelled 0.99 H. Eos # (Auto) Cancelled 0.00 L. Baso # ( Auto) Cancelled 0.01. Manual Slide Review Cancelled Abnormal smear. Blood Type O NEGATIVE. Gel Antibody Screen Positive. Screen 0 ros/5 flds - neg. RhIG Candidate? Yes. Rhogam Indicated Yes, baby rh pos H. Result Diagrams: 09/26/17 15:35. [Image 1]. - Problem List. (1) 40 weeks gestation of . SNOMED Code(s): 10648073. ICD Code: Z3A.40 - 40 WEEKS GESTATION OF Status: Acute Current Visit: Yes. Problem List Initiated/ Reviewed/Updated: No. Orders Last 24hrs: Active Orders 24 hr. CategoryDate TimeStatus. Patient Status [ADT] RoutineADT 09/26/17 14:54Active. Activity as Tolerated [RC] PER UNIT ROUTINECare 09/26/17 14:54Active. Peripheral IV Care [ RC] [id number] 09/26/17 14:56Active. Vital Signs [RC] 04,12,20Care 09/26/17 14: 54Active. Regular Diet [DIET]Diet 09/26/17 DinnerActive. ANTIBODY IDENTIFICATION [BBK] RoutineLab 09/26/17 15:35Results. CBC WITH AUTO DIFF [HEME ] RoutineLab 09/27/17 06:00Ordered. SCREEN [BBK] RoutineLab 09/26/17 15: 35Results. PATIENT RETYPE [BBK] RoutineLab 09/26/17 15:35Results. RH IMMUNE GLOBULIN [BBK] RoutineLab 09/26/17 15:35Results. RHOGAM, [RHIG WORKUP, ] [BBK]Lab 09/26/17 15:35Results. Routine. Acetaminophen [ Tylenol]Med 09/26/17 14:54Active. 650 mg PO Q4H PRN. Docusate Sodium [Colace] Med 09/26/17 14:54Active. 100 mg PO BID PRN. Ibuprofen [Motrin]Med 09/26/17 14 :54Active. 600 mg PO Q4H PRN. Oxytocin/Lactated Ringers [Pitocin in LR 10 Units/1,000Med 09/26/17 15:00Active. ML]. 10 unit in 1,000 ml IV TITRATE. Sodium Chloride 0.9% [Saline Flush]Med 09/26/17 14:54Active. 10 ml FLUSH ASDIRECTED PRN. Assess Lochia [WOMSER] Per Unit RoutineOth 09/26/17 14: 54Ordered. Assess Uterine Involution [WOMSER] Per Unit RoutineOth 09/26/17 14: 54Ordered. Breast Pump [WOMSER] Per Unit RoutineOth 09/26/17 14:54Ordered. Heat Therapy [OM.PC] PRNOth 09/26/17 15:00Ordered. Heat Therapy [OM.PC] PRNOth 09/27/17 15:00Ordered. Perineal Care [OM.PC] Per Unit RoutineOth 09/26/17 14: 54Ordered. Peripheral IV Insertion Adult [OM.PC] RoutineOth 09/26/17 14: 54Ordered. Sitz Bath [OM.PC] Per Unit RoutineOth 09/26/17 14:54Ordered. Resuscitation Status RoutineResus Stat 09/26/17 14:54Ordered. Medication Orders. Acetaminophen (Tylenol) 650 mg PO Q4H PRN. PRN Reason: mild pain or fever. Docusate Sodium (Colace) 100 mg PO BID PRN. PRN Reason: Constipation. Oxytocin/Lactated Ringer's (Pitocin In Lr 10 Units/1,000 Ml) 10 unit in 1, 000 mls @ 100 mls/hr IV TITRATE SULAIMAN. Last Admin: 09/26/17 14:00 Dose: 100 mls/ hr. Ibuprofen (Motrin) 600 mg PO Q4H PRN. PRN Reason: Mild pain or fever. Sodium Chloride (Saline Flush) 10 ml FLUSH ASDIRECTED PRN. PRN Reason: Keep Vein Open. Assessment/Plan Comment:: Patient seen, examined and discussed with student. - Discharge Data Discharge Date: 09/28/17 Discharge Disposition: Home, Self-Care 01 Condition: Good - Discharge Diagnosis/Problem(s) (1) 40 weeks gestation of SNOMED Code(s): 02898900 ICD Code: Z3A.40 - 40 WEEKS GESTATION OF Status: Acute Current Visit: Yes - Patient Summary/Data Complications: none in hospital-delivered in ambulance on way to hospital Consults: none Hospital Course: uneventful - Patient Instructions Diet: Regular Diet as Tolerated Driving: Do Not Drive (x48 hrs) Showering/Bathing: May Shower Notify Provider of: Fever, Increased Pain, Swelling and Redness, Drainage, Nausea and/or Vomiting - Discharge Plan Home Medications: Home Meds Acetaminophen [Tylenol] 650 mg PO Q4H PRN tablet 09/28/17 [Rx] Docusate Sodium [Colace] 100 mg PO BID PRN cap 09/28/17 [Rx] Ibuprofen [IJD: Ibuprofen] 600 mg PO Q4H PRN tablet 09/28/17 [Rx] Referrals: Geoffrey Van MD [Physician] - (See Dr Van Monday10/10/2017) - Discharge Summary/Plan Comment DC Time >30 min.: No - Patient Data Vitals - Most Recent: Last Vital Signs Temp 97.6 F 09/28/17 04:43 Pulse 56 L 09/28/17 04:43 Resp 16 09/28/17 04:43 BP 115/58 L 09/28/17 04:43 Pulse Ox 100 09/28/17 04:43 Weight - Most Recent: 158 lb Med Orders - Current: Current Medications Acetaminophen (Tylenol) 650 mg PO Q4H PRN PRN Reason: mild pain or fever Docusate Sodium (Colace) 100 mg PO BID PRN PRN Reason: Constipation Oxytocin/Lactated Ringer's (Pitocin In Lr 10 Units/1,000 Ml) 10 unit in 1,000 mls @ 100 mls/hr IV TITRATE SULAIMAN Last Admin: 09/26/17 14:00 Dose: 100 mls/hr Ibuprofen (Motrin) 600 mg PO Q4H PRN PRN Reason: Mild pain or fever Last Admin: 09/28/17 04:46 Dose: 600 mg Sodium Chloride (Saline Flush) 10 ml FLUSH ASDIRECTED PRN PRN Reason: Keep Vein Open Discontinued Medications Oxytocin/Lactated Ringer's (Pitocin In Lr 10 Units/1,000 Ml) Confirm Administered Dose 10 unit in 1,000 mls @ as directed IV .STK-MED ONE Stop: 09/26/17 13:38 Last Admin: 09/27/17 01:23 Dose: Not Given *Q Meaningful Use (DIS) - VTE *Q VTE Criteria *Q: - Stroke *Q Stroke Criteria *Q: - AMI *Q AMI Criteria *Q:
== END 2017-09-28 10:49 | disposition home or self-care (01) | DRG 775 ==
LOC: JD.OB 12:41 → EDSTATUS 13:54
PROVIDERS: ADMIT Obstetrics & Gynecology; ATTEND Obstetrics & Gynecology
DX: Z39.0 Encounter for care and examination of mother immediately after delivery (principal); Z37.0 Single live birth; O99.824 Streptococcus B carrier state complicating childbirth; Z3A.40 40 weeks gestation of pregnancy
CPT/HCPCS: 36415; 85025; A9270-GY; J2590; J2790